=== PATIENT | female | born 1950 | race African-American/Black ===

== ENCOUNTER 2018-04-04 10:38 | Emergency (ER) | payer OTHER, MEDICAID ==
[~2018-04-04] VITALS: Ht 167.6 cm; Wt 75.0 kg
[2018-04-04] MEDS ORDERED: SODIUM CHLORIDE 0.9% 1,000 ML IV ONE (11:27)
[2018-04-04 12:09] LABS: BASOPHILS % 0.3 % (0.0-2.0); EOSINOPHILS % 1.1 % (0.0-5.0); HEMATOCRIT. 36.5 % (36.0-48.0); HEMOGLOBIN. 12.2 g/dL (12.0-16.0); LYMPHOCYTES % 15.4 % (20.0-50.0); MEAN CORPUSCULAR VOLUME 92.9 fL (81.0-99.0); MEAN PLATELET VOLUME 8.4 fl (7.4-10.4); MONOCYTES % 7.2 % (2.0-8.0); PLATELET 366 x1000/uL (130-400); RED BLOOD CELL COUNT 3.92 mill/uL (4.2-5.4); RED CELL DISTRIBUTION WIDTH 13.6 % (11.6-14.6)
[2018-04-04 12:13] LABS: CHLORIDE 104 mEq/L (98-107)
[2018-04-04 15:02] LABS: CLARITY URINE CLEAR (CLEAR); COLOR URINE YELLOW (YELLOW); KETONES URINE 1+ (NEGATIVE); LEUKOCYTE ESTERASE URINE 1+ (NEGATIVE); NITRITE URINE NEGATIVE (NEGATIVE); OCCULT BLOOD URINE TRACE (NEGATIVE); PROTEIN URINE NEGATIVE (NEGATIVE); SPECIFIC GRAVITY URINE 1.012 (1.005-1.030); UROBILINOGEN URINE 0.2 E.U./dL (0.2-1.0)
[2018-04-04] MEDS ORDERED: CEFTRIAXONE SODIUM 250 MG/VIAL IM ONE (15:30)
[2018-04-04] MEDS ORDERED: SODIUM CHLORIDE 0.9% 100 ML IV ONE (15:30)
[2018-04-04] MEDS ORDERED: ACETAMINOPHEN 325MG TABLET PO ONE (15:30)
[2018-04-04] MEDS ORDERED: LIDOCAINE HCL 1% 20ML VIAL (Pyxis) INJ INFIL ONE (16:00)
[2018-04-04 16:24] VITALS: BP 136/87
[2018-05-02] MEDS ORDERED: MONT10TA21 MT (03:11)
[2018-05-02] MEDS ORDERED: ALBU6.7H9 INH (03:11)
[2018-05-02] MEDS ORDERED: CYM20 MT (03:13)
[2018-05-02] MEDS ORDERED: CHOL500051 MT (03:13)
[2018-05-02] MEDS ORDERED: LOSA1TAB40 MT (03:13)
== END 2018-04-04 16:59 | disposition home or self-care (01) ==
LOC: ER 13:16
DX: B34.9 Viral infection, unspecified (principal); N39.0 Urinary tract infection, site not specified
CPT/HCPCS: 36415; 71045; 80048; 81003; 85025; 96360; 96361; 96372; 99285; J0696; J3490; J7030; J7050

== ENCOUNTER 2018-04-11 10:59 | Emergency (ER) | payer OTHER, MEDICAID ==
[~2018-04-11] VITALS: Ht 170.2 cm; Wt 69.0 kg
[2018-04-11] MEDS ORDERED: IPRATROPIUM BROMIDE (0.02%) 0.5MG/2.5ML NEB HHN STA (13:04)
[2018-04-11] MEDS ORDERED: ALBUTEROL (0.083%) 2.5MG/3ML NEB HHN STA (13:04)
[2018-04-11 16:27] VITALS: BP 138/86
[2018-05-02] MEDS ORDERED: MONT10TA21 MT (03:11)
[2018-05-02] MEDS ORDERED: ALBU6.7H9 INH (03:11)
[2018-05-02] MEDS ORDERED: CYM20 MT (03:13)
[2018-05-02] MEDS ORDERED: CHOL500051 MT (03:13)
[2018-05-02] MEDS ORDERED: LOSA1TAB40 MT (03:13)
== END 2018-04-11 16:28 | disposition home or self-care (01) ==
LOC: ER 10:59
DX: J45.901 Unspecified asthma with (acute) exacerbation (principal)
CPT/HCPCS: 94640; 99283; J7611